=== PATIENT | male | born 1955 | race Caucasian/White ===

== ENCOUNTER 2021-02-04 18:58 | Emergency (ER) | payer OTHER, SELFPAY ==
--- NOTE | ~2021-02-04 | XR_ITS ---
EXAMINATION: XR chest 2V DATE: 02/04/2021 19:30 INDICATION: Cough. TECHNIQUE: Frontal and lateral views of the chest were obtained. COMPARISON: Chest 2 views 10/31/2018, chest CT 06/11/2014 FINDINGS: There is mild atelectasis in lingula. No pleural effusion or pneumothorax. The heart size i s normal. IMPRESSION: 1. Mild atelectasis in lingula. Reviewed, dictated and finalized at location A. CUTTER
[2021-02-04 19:09] VITALS: BP 161/73; PULSE 62; RESP 16; TEMP 37.4; O2SAT 98
--- NOTE | 2021-02-04 19:28 | ED.URI ---
HPI - URI/Sore Throat General Chief Complaint: Upper Respiratory Infection Stated Complaint: Chest Congestion Time Seen by Provider: 02/04/21 19:20 Source: patient, RN notes reviewed and old records reviewed Mode of arrival: ambulatory Limitations: no limitations History of Present Illness HPI Narrative: 65-year-old male who presents to [facility] with complaints of cough, dyspnea 1 week duration, left lower back discomfort with some wheezing and fever 102 on Tuesday.Patient has history of COPD and pneumonia and uses inhalers daily and has rescue inhaler that he states he has had to use more frequently lately. Patient reports that he quit tobacco use in 1990 but smoked heavily when he smoked up to 3ppd.Patient reports that he has had productivity of green yellow sputum with his cough and dyspnea mainly with cough and activity. SAO2 98% on room air, no tachypnea noted. Patient request refill on 2 of his inhalers which he states are low. MD elicited complaint: cough Related Data Home Medications Medication Instructions Recorded Confirmed fluticasone propion-salmeterol See Rx Instructions .ROUTE .COMPLEX 02/04/21 02/04/21 [Wixela Inhub] ipratropium bromide [Atrovent HFA] See Rx Instructions .ROUTE .COMPLEX 02/04/21 02/04/21 Allergies Allergy/AdvReac Type Severity Reaction Status Date / Time Sulfa (Sulfonamide Allergy Unknown unknown Verified 02/04/21 19:12 Antibiotics) Review of Systems Review of Systems: CONSTITUTIONAL:Positive for fevers, chills, or sweats. EYES: Denies visual changes, redness, or discharge. ENT: Positive for rhinorrhea, congestion,no sore throat, or otalgia. CARDIOVASCULAR: Denies chest pain, palpitations, or edema. RESPIRATORY: Positive for cough with some dyspnea with cough an exertion. GASTROINTESTINAL: Denies abdominal pain, nausea, vomiting, or diarrhea. GENITOURINARY: Denies dysuria or hematuria. SKIN: Denies rash or itching. MUSCULOSKELETAL:Positive for some left lower back pain,no joint pain, or myalgia. NEUROLOGIC: Denies headache, numbness, or weakness. PSYCHIATRIC: Denies anxiety or depression. All systems reviewed & are unremarkable except as noted in HPI and below PMFSH Past Medical History Medical History (Updated 02/05/21 @ 00:00 by Background Daemon) Acute bronchitis Aftercare following right shoulder joint replacement surgery Asthma Chronic lower back pain (~1999) HTN (hypertension) Psoriasis (~1974) Surgical History Surgical History (Updated 02/07/21 @ 17:02 by Susannah Petersen NP) H/O cataract removal with insertion of prosthetic lens bilateral H/O shoulder surgery Family History Family History Father Hypertension Social History Social History (Updated 02/07/21 @ 17:03 by Susannah Petersen NP) Smoking packs per day: 3 Smoking cigarettes per day: 60.0 Years smoked: 24 Smoking pack-years: 72.00 Smoking status: Former smoker Second hand tobacco smoke exposure: No Smoking end date: 03/07/90 Alcohol intake: current Substance use: never Gender identity (if verbalized by the patient): Male Comments At time of signature, agree with nursing past medical, surgical, social and family history. There is no relevant family history pertinent to the presenting complaint Exam Narrative: GENERAL: Well-appearing, well-nourished,obese and in no acute distress. HEAD: Normocephalic, atraumatic. EYES: PERRLA and EOMI. ENT: Nares clear, clear rhinorrhea no epistaxis. Mucous membranes moist.TM's normal with good light reflex, throat slight red with no lesions or exudates, no tonsil enlargement NECK: Supple.no lymphadenopathy CHEST: Decreased with coarse breath sounds bases to auscultation. No respiratory distress.Cough with some stated dyspnea, SAO2 98% on room air no tachypnea or accessory muscle use. HEART: Regular rate and rhythm. No murmur heard. Normal peripheral pulses. ABDOMEN: Soft, nontender,
== END 2021-02-04 20:10 | disposition home or self-care (01) ==
PROVIDERS: Emergency Provider Registered Nurse
DX: J06.9 Acute upper respiratory infection, unspecified (principal); J44.9 Chronic obstructive pulmonary disease, unspecified; I10 Essential (primary) hypertension; Z87.891 Personal history of nicotine dependence
CPT/HCPCS: 71046; 99213; G0463

== ENCOUNTER → 2021-02-12 01:45 | Outpatient (CLI) | payer OTHER, SELFPAY ==
[2021-02-12 19:33] LABS: SARS-CoV-2 RNA PCR Positive
== END ==
PROVIDERS: PCP Family Medicine; Visit Provider Family Medicine
DX: U07.1 COVID-19 (principal)
CPT/HCPCS: C9803; U0003; U0005

== ENCOUNTER 2022-12-17 12:33 | Emergency (ER) | payer OTHER, SELFPAY ==
[2022-12-17] VITALS (26 sets, daily range): BP systolic 140–230; BP diastolic 67–133; PULSE 66–85; RESP 15–23; TEMP 37.1; O2SAT 87–100
--- NOTE | ~2022-12-17 | XR_ITS ---
EXAMINATION: XR chest 2V DATE: 12/17/2022 14:16 INDICATION: Shortness of breath. TECHNIQUE: Frontal and lateral views of the chest were obtained. COMPARISON: Chest 2 views 02/04/2021 FINDINGS: There is no pneumonia, pleural effusion, or pneumothorax. The heart size is normal. IMPRESSION: 1. No acute cardiopulmonary disease. Reviewed, dictated and finalized at location A.
--- NOTE | 2022-12-17 12:58 | ECG_ITS ---
Measurements Intervals [place] Rate: 72 P: 85 NH: 196 QRS: -35 QRSD: 98 T: 58 QT: 388 QTc: 427 Interpretive Statements SINUS RHYTHM LEFT AXIS DEVIATION [QRS AXIS < -30] ABNORMAL ECG NO PREVIOUS ECG AVAILABLE FOR COMPARISON Electronically Signed On 12-17-2022 14:08:51 CDT by Keo Mao M.D.
[2022-12-17 13:24] LABS: Basophils Percent Auto 0.3 % (0.2-1.2); Eosinophils Absolute Auto 0.6 K/mm3 (0-0.3); Eosinophils Percent Auto 6.7 % (0-4.4); Hematocrit 46.1 % (42.0-52.0); Hemoglobin 15.8 g/dL (14.0-18.0); Immature Granulocyte Absolute 0.03 K/mm3 (0.00-0.031); Immature Granulocyte Percent A 0.3 % (0-0.5); Lymphocytes Percent Auto 10.4 % (18.3-44.2); Mean Corpuscular HGB Conc 34.3 g/dl (32-36); Mean Corpuscular Hemoglobin 30.9 pg (26-34); Mean Platelet Volume 10.4 fl (7.4-10.4); Monocytes Absolute Auto 0.9 K/mm3 (0.1-0.6); Monocytes Percent Auto 9.1 % (2.6-8.5); Neutrophils Percent Auto 73.2 % (45.5-73.1); Platelet Count Result 204 k/mm3 (150-375); Red Blood Count 5.12 M/mm3 (4.6-6.20); Red Cell Distribution Width 12.8 % (11.5-14.5); White Blood Count 9.6 K/mm3 (4.5-10.0)
[2022-12-17 13:35] LABS: Alanine Aminotransferase 20 U/L (6-50); Albumin Level 4.5 g/dL (3.5-5.1); Alkaline Phosphatase 56 U/L (38-126); Anion Gap 11 mmol/L (8-16); Aspartate Amino Transferase 37 U/L (17-59); Bilirubin,Total 1.4 mg/dL (0.2-1.3); Blood Urea Nitrogen 23 mg/dL (9-20); Calcium 9.5 mg/dL (8.4-10.2); Carbon Dioxide 28 mmol/L (22-30); Chloride 99 mmol/L (98-107); Estimated CRCL calculation 50 ml/min; Estimated Glomerular Filt Rate 40; Glucose 94 mg/dL (65-110); Potassium 3.4 mmol/L (3.4-5.0); Sodium 138 mmol/L (137-145)
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
[2022-12-17 17:37] LABS: Base Excess ABG 1.2 mEq/l (+/-2.0); Fractional Inspired Oxygen 21 %; HCO3 ABG 24.9 mEq/l (22.0-26.0); Modified Allen's Test Pass; Oxygen Content ABG 22.1 %vol (16.0-22.0); Oxygen Saturation ABG 94.6 % (95.0-100.0); Oxyhemoglobin 92.6 % THb (90.0-100.0); PCO2 ABG 37.2 mmHg (35.0-45.0); PO2 ABG 69.2 mmHg (80.0-100.0); Site Drawn RIGHT RADIAL; pH ABG 7.444 (7.350-7.450)
[2022-12-17] MEDS: ALBUTEROL SULFATE NEB 2.5 MG/3 ML INH INHALATION (17:41)
[2022-12-17] MEDS: IPRATROPIUM BR 0.02% INH SOLN 0.5 MG/2.5 ML VIAL INHALATION (17:42)
[2022-12-17] MEDS: hydrALAZINE HCL 20 MG/ML VIAL IV PUSH (18:02)
[2022-12-17] MEDS: methylPREDNISolone SOD SUCC 125 MG VIAL IV PUSH (18:02)
[2022-12-17 18:25] LABS: Prothrombin Time 13.8 Seconds (11.1-14.7)
[2022-12-17 18:26] LABS: Partial Thromboplastin Time 32.6 SECONDS (22.3-36.8)
[2022-12-17 18:27] LABS: D Dimer 0.39 ug/mL (<0.48)
[2022-12-17 18:29] LABS: NT Pro B Type Natriuretic Pept 371 pg/mL (19.9-100)
[2022-12-17 18:31] LABS: Troponin I 0.019 ng/mL (0.000-0.034)
[2022-12-17 18:43] LABS: Influenza A QL RT-PCR Negative (Negative); Influenza B QL RT-PCR Negative (Negative); SARS-CoV-2 RNA PCR Negative (Negative)
[2022-12-17] MEDS: cloNIDine HCL 0.2 MG TABLET PO (18:48)
[2022-12-17] MEDS: LOSARTAN POTASSIUM 100 MG TABLET PO (18:48)
[2022-12-17 20:52] LABS: Troponin I 0.019 ng/mL (0.000-0.034)
[2022-12-17] MEDS: levoFLOXacin 750 MG TABLET PO (21:22)
[2022-12-17] MEDS: ALBUTEROL SULFATE NEB 2.5 MG/3 ML INH 10 MG INHALATION (21:26)
== END 2022-12-17 22:50 | disposition home or self-care (01) ==
PROVIDERS: Emergency Medicine; Emergency Provider Emergency Medicine; PCP Family Medicine
DX: J44.1 Chronic obstructive pulmonary disease with (acute) exacerbation (principal); I12.9 Hypertensive chronic kidney disease with stage 1 through stage 4 chronic kidney disease, or unspecified chronic kidney disease; N18.30 Chronic kidney disease, stage 3 unspecified; T46.5X6A Underdosing of other antihypertensive drugs, initial encounter; T48.6X6A Underdosing of antiasthmatics, initial encounter; Z20.822 Contact with and (suspected) exposure to COVID-19; E55.9 Vitamin D deficiency, unspecified; Z87.891 Personal history of nicotine dependence; Z98.42 Cataract extraction status, left eye; Z98.41 Cataract extraction status, right eye; Z96.1 Presence of intraocular lens; R94.31 Abnormal electrocardiogram [ECG] [EKG]
CPT/HCPCS: 36415; 36600; 71046; 80053; 82805; 83880; 84484; 85025; 85380; 85610; 85730; 87636; 93005; 94640; 96374; 96375; 99284; A9270; J0360; J2930

== ENCOUNTER 2024-05-13 16:16 | Emergency (ER) | payer OTHER, SELFPAY ==
[2024-05-13] VITALS (10 sets, daily range): BP systolic 152–210; BP diastolic 94–97; PULSE 76–88; RESP 12–114; TEMP 36.5; O2SAT 96–100
--- NOTE | ~2024-05-13 | XR_ITS ---
EXAMINATION: XR chest 2V Exam Date/Time: 05/13/2024 16:30 CDT HISTORY: sob, cough Comparison: 12/17/2022. RESULT: Lines, tubes, and devices: None. Lungs and pleura: Clear. Cardiomediastinal silhouette: Stable. Other: No acute osseous or upper abdominal finding. IMPRESSION: No acute cardiopulmonary process. Reviewed, dictated and finalized at location K.
--- OUTSIDE RECORDS SUMMARY | 2024-05-13 16:19 | XMS_ITS | Clinical Summary ---
Author Organization [facility] Address [address] [place] [address] Phone Care Team Providers Care Molder Bench Name Role Phone Leslie Pleletier MD Primary Care Provider [phone] Allergies No known active allergies Medications LOSARTAN POTASSIUM-HCTZ PO Take by mouth. Active CLONIDINE HCL PO Take by mouth. Active MELOXICAM PO Take by mouth. Active HYDROCODONE-ACET AMINOPHEN PO Take by mouth. Active Fluticasone-Salm eterol (ADVAIR DISKUS IN) take by inhalation . Active Social History Tobacco Use Types Packs/Day Years Used Date Smoking Tobacco: Former Cigarettes Smokeless Tobacco: Never Alcohol Use Standard Drinks/Week Comments Yes 0 (1 standard drink = 0.6 oz pur e alcohol) occasionally Sex and Gender Information Value Date Recorded Sex Assigned at Not on file Legal Sex Male 9:37 PM CDT Gender Identity Not on file Sexual Orientation Not on file Plan of Treatment Health Maintenance Due Date Last Done Comments Hepatitis C Virus (HCV) Screening 1955 TdaP Immunization 1955 Colonoscopy 1998 Colorectal Cancer Screening 1998 Cologuard 08/15/2003 Immunochemical Fecal Occult Blood 08/15/2003 Pneumococcal Immunization (5 0+ years) (1 of 1 - PCV) 08/15/2003 Zoster Immunization (1 of 2) 08/15/2003 Influenza Immunization (#1) 2023 SARS-COV-2 Immunization ( - 2023-25 season) 2023 Respiratory Syncytial Virus (RSV) Immunization (Adult) (1 - 1-dose 75+ series) 2028 Hepatitis B Immunization Aged Out No longer eligible based on patient's age to complete this topic Meningococcal Immunization (ACWY) Aged Out No longer eligible based on patient's age to complete this topic Rotavirus Immunization Aged Out No lo nger eligible based on patient's age to complete this topic Insurance MEDICARE C E[employer] Care Teams Molder Bench Relationship Specialty Start Date End Date Lelsie Pelletier MD [phone] [place] [address] PCP - General Family Medicine 12/01/18
--- OUTSIDE RECORDS SUMMARY | 2024-05-13 16:19 | XMS_ITS | Continuity of Care Document ---
Author Organization [facility] Address [address] [place] [address] Phone Care Team Providers Care Aviation Technician Aircraft Name Role Phone oB Hewitt MD Unavailable Unavailable Procedures Procedure Date Special Narrative Report Rating Letter Rating Letter Medical Record Copy Medical Record Copy Per Page Office/outpatient visit,est, mod 2009 Supplemental Report Postop followup visit Supplemental Report Postop followup visit Supplemental Report Postop followup visit Supplemental Report Postop followup visit Supplemental Report Arthscpy shldr decompression Repair biceps long tendon rupture Office/outpatient visit,est, mod 2009 Supplemental Report Office/outpatient visit,est, mod 2009 Supplemental Report Office/outpatient visit,est, mod 2009 Drain/inject major jointor bursa 2009 Depo Medrol Methylprednisolone 40 MG inj Supplemental Report Office/outpatient visit,est, mod 2009 Supplemental Report Office/outpatient visit,est, mod 2009 X-ray exam of ankle, complete 0 Supplemental Report Office/outpatient visit,new, mod 2009 X-ray exam of shoulder, complete 2009 X-ray exam of foot, complete Advance Directives Directive Yes / No Effective Date File Name No Information Encounters Encounter Description Practice Location Reason(s) For Visit Diagnoses Date Provider Providers Copied on Encounter [facility], [address] [place] [address], [id number], tel:[phone] [facility] No Information 4 1 Marcelina Soriano. [address] [place] [address], [place], [place], [id number], [place]. tel:[phone] Rating Letter [facility], [address] [place] [address], [id number], [place] tel:[phone] [facility] No Information 0 1 Marcelina Soriano. [address] [place] [address], [id number], [place]. tel:[phone] Rating Letter [facility], [address] [place] [address], [place], [place], [id number], [place] tel:[phone] [facility] No Information 2 1 Marcelina Soriano. [address] [place] [address], [id number], [place]. tel:[phone] [facility], [address] [place] [address], [id number], [place] tel:[phone] [facility] No Information 3 0 Administrative Provider. [address] [place] [address], [id number], [place]. tel:[phone] Office/outpa tient visit,est, mod [facility], [address] [place] [address], [id number], [place] tel:[phone] [facility] SHOULDER REGION DIS NECROTATOR CUFF SYND NOSSPRAIN SHOULDER/ARM NECJOINT PAIN-SHLDER Dec-2 0-201 0 Marcelina Soriano. [address] [place] [address], [id number], [place]. tel:[phone] Referring Provider: Elo Steen, [address] [facility] [address] [facility], [place], [address] . tel:[phone] [facility], [address] [facility] [address], [place], [place], [address] [place] [address], tel:[phone] [facility] No Information 2 0 Marcelina Soriano. [address] [facility], [place], [place], [address] [place] [address], [place]. tel:[phone] Referring Provider: Elo Steen, [facility] [address] [facility], [place], [place], [address] [place] [address] . tel:[phone] [facility], [facility] [place] [address], [place], [place], [address] [place] [address], tel:[phone] [facility] No Information 0 0 Marcelina Soriano. [address] [facility], [facility] [address], [place], [place], [address] [place] [address], [place]. tel:[phone] Referring Provider: Elo Steen, [facility] [address] [facility], [place], [place], [address] [place] [address] . tel:[phone] [facility], [address] [place] [address], [place], [place], [address] [place] [address], tel:[phone] [facility] No Information 0 0 Marcelina Soriano. [address] [facility], [place], [place], [address] [place] [address], [place]. tel:[phone] Referring Provider: Elo Steen, [address] [facility] [address] [facility], [place], [address] . tel:[phone] [facility], [address] [facility] [address], [place], [place], [address] [place] [address], tel:[phone] [facility] No Information 0 Marcelina Soriano. [address] [facility], [place], [place], [id number], [place]. tel:[phone] Referring Provider: Elo Steen, [address] [address], [place], [address] . tel:[phone] [facility], [address] [address], [place], [place], [id number], [place] tel:[phone] [place] [address] No Information 0 Marcelina Soriano. [address] [address], [place], [place], [id number], [place]. tel:[phone] Office/outpa tient visit,est, [facility], [address] [place] [address], [place], [place], [address] [place] [address], tel:[phone] [facility] No Information 0 Marcelina Soriano. [address] [place] [address], [place], [place], [address] [place] [address], [place]. tel:[phone] Referring Provider: Elo Steen, [address] [address], [place], [address] . tel:[phone] Office/outpa tient visit,est, [facility], [address] [place] [address], [place], [place], [id number], [place] tel:[phone] [facility] No Information 0 Marcelina Soriano. [address] [address], [place], [place], [id number], [place]. tel:[phone] Referring Provider: Elo Steen, [address] [address], [place], [address] . tel:[phone] Office/outpa tient visit,est, [facility], [address] [place] [address], [id number], [place] tel:[phone] [facility] No Information 0 Marcelina Soriano. [address] [facility], [place] [address], [place], [place], [id number], [place]. tel:[phone] Referring Provider: Elo Steen, [address] [address], [place], [address] . tel:[phone] Office/outpa tient visit,[facility], [facility], [address], [id number], tel:[phone] [facility] No Information July-2 0-201 0 Harry Gasca. [address] [address], [place], [place], [id number], [place]. tel:[phone] Office/outpa tient visit,[facility], [facility], [address], [id number], [place] tel:[phone] [facility] No Information July- 0-201 0 Harry Gasca. [address] [address], [place], [place], [id number], [place]. tel:[phone] Office/outpa tient visit,[facility], [address], [id number], [place] tel:[phone] [facility] No Information Jun-2 1- 0 Harry Gasca. [address], [id number], [place]. tel:[phone] Family History Family Member Type Diagnosis Age At Onset No Information Payers Payer name Insurance type Covered republican ID Mc casanova(s) Rafa [id number] Social History Type Description Quantity Date Captured Comments Sex Male Smoking Status No Information Chief Complaint And Reason For Visit No Information Reason For Referral Reason For Referral No Information History Of Present Illness Encounter Date Complaint History Of Prese nt Illness No Information Functional Status Date Functional Assessmen t No Information Instructions Date Instruction Additional Infor mation No Information Assessments Type Assessment Date No Information Patient Care Teams Name Effective Dates (start - stop) Status Members No Information
--- OUTSIDE RECORDS SUMMARY | 2024-05-13 16:19 | XMS_ITS | Continuity of Care Document ---
Author Organization [employer] [facility] Address [address] [place] [address] Phone Care Team Providers Care Managing Attorney Name Role Phone Jimmy CONNER, Irina Unavailable Unavailable Allergies, Adverse Reactions, Alerts Substance Reaction Status Criticality Sulfa (Sulfonamide Antibiotics) Active No Information Medications Medication Instructions Dosage Effective Dates (start - stop) Status Comments losartan 100 mg-hydrochlorothia zide 25 mg tablet take 1 tablet by oral route every day 1.00 tablet - Active clonidine HCl 0.2 mg tablet take 1 tablet by oral route 2 times every day 0.2 MG - Active Wixela Inhub 500 mcg-50 mcg/dose powder for inhalation inhale 1 puff by inhalation route 2 times every day in the morning and evening approximately 12 hours apart 1.00 puff - Active Trelegy Ellipta 200 mcg-62.5 mcg-25 mcg powder for inhalation inhale 1 puff by inhalation route every day at the same time each day 1.00 puff - Active Atrovent HFA 17 mcg/actuation aerosol inhaler inhale 2 puff by inhalation route 4 times every day 34 MCG - Active indomethacin 50 mg capsule take 1 capsule by oral route 2 times every day with food 50 MG - Active albuterol sulfate HFA 90 mcg/actuation aerosol inhaler inhale 2 puff by inhalation route every 4 - 6 hours as needed 180 MCG - Active neomycin-polymyxin -dexameth 3.5 mg/mL-10,000 unit/mL-0.1% eye drops instill 1 drop by ophthalmic route every 3 - 4 hours into left eye(s) - No Longer Active Procedures Procedure Date SCODI, Retina Eye Exam & Treatment Fundus Photography W/ Report Office/outpatient Visit, Est Fundus Photography W/ Report Eye Exam, New Patient Post-op Follow-up Visit Post-op Follow-up Visit Remove Cataract, Insert Lens Eye Exam, New Patient [employer] Advance Directives Directive Yes / No Effective Date File Name Other Directive No N/A N/A WARNING:The information contained in this section is historical and is provided for information only and does not constitute a legal document or any assurance that the information is still accurate. Please verify the information with the patricio of the legal document before using it for clinical purposes. Encounters Encounter Description Practice Location Reason(s) For Visit Diagnoses Date Provider Providers Copied on Encounter [facility], [address] [place] [address] [address], [place], [place], [id number], tel:[phone] SEC [place] Professional Red/Painfu l (chief complaint) Acute viral conjunctivitis of left eyePuckering of macula, left eyeVitreous degeneration, left eyePresence of intraocular lensOther secondary cataract, bilateral May- 5 Jimmy OD Irina. [address] [place] [address], [address], [place], [place], [id number], . tel:[phone] Referring Provider: Odilon Myrick, [address] [facility] [place], [place], [address] . tel:[phone] Office/outpa tient Visit, Est [facility], [address], [place], [place], [address], [place] tel:[phone] SEC [place] Professional Follow up visit (chief complaint) Vitreous degeneration, left eye 3 Terrell Donald. [address] [facility], [facility] [place], [place], [address], [place]. tel:[phone] Referring Provider: Odilon Myrick [address] [facility] [address], [place], [address] . tel:[phone] [facility], [address], [place], [place], [address], [place] tel:[phone] [facility] Professional Complete Exam (chief complaint) Vitreous degeneration, left eyePresence of intraocular lensRetinal hemorrhage, left eye 3 Terrell Donald. [address] [facility], [place], [place], [address], [place]. tel:[phone] Referring Provider: Odilon Myrick, [address] [facility] [address], [place], [address] . tel:[phone] [facility], [address], [place], [place], [address], [place] tel:[phone] [facility] No Information 8-200 8 Doisy Edyulissa. [address], [place], [place], [facility], [place]. tel:[phone] [facility], [address], [place], [place], [address], [place] tel:[phone] [facility] No Information 2 6-200 8 Doiila Edyulissa. [address] , [address], [place], [address], [place]. tel:[phone] [facility], [address], [place], [place], [address], [place] tel:[phone] [facility] No Information Nov2 5-200 8 Doisy Edyulissa. [address] , [address], [place], [place], [facility], [place]. tel:[phone] [facility], [address], [place], [place], [address], [place] tel:[phone] [facility] No Information 8 Julissa García. [address] , [address], [place], [address], [place]. tel:[phone] Referring Provider: Henok [address], [place], [address]. tel:[phone] Family History Family Member Type Diagnosis Age At Onset No Information Payers Payer name Insurance type Covered constitution party ID Mc casanova(s) [employer] [id number] Social History Type Description Quantity Date Captured Comments Alcohol Use Details Caffeine Use Details Tobacco Use Status Ex-cigarette smoker 025 Smoking Status Former smoker Smoking Tobacco Use Details Cigarette: Age Started: 16, Age Stopped: 35, Years Used 19 Cigarette: No Details Available Sex Male Chief Complaint And Reason For Visit From encounter dated '05/09/2024 10:15'. Red/Painful (chief complaint). Description: The 68 year old patient presents for evaluation of Red/Painful in the left eye. Pt states that starting about a week ago they noticed that OS started to become painful and red. Pt states it feels like something is in OS and pt states when they close OS itfeels much better. Pt states that OS mats up during the night and is hard to open in OU. Pt states t hat they had a cold around the same time this started and pt states that the cold seem to make OS worse. Pt states that since then OS seems a little better but still feels like something is in OS. Pthas been taking Polytrim every 4-6 hours in OS. Reason For Referral Reason For Referral No Information Plan Of Treatment Date Type Action Status Goal Tobacco cessation counseling completed Patient Education Blair Restrepo Instructcordelia ons completed Patient Education Learning About Vitreous Detachment completed History Of Present Illness Encounter Date Complaint History Of Prese nt Illness Red/Painful The 68 year old patient presents for evaluation of Red/Painful in the left eye. Pt states that starting about a week ago they noticed that OS started to become painful and red. Pt states it feels like something is in OS and pt states when they close OS it feels much better. Pt states that OS mats up during the night and is hard to open in OU. Pt states that they had a cold around the same time this started and pt states that the cold seem to make OS worse. Pt states that since then OS seems a little better but still feels like something is in OS. Pt has been taking Polytrim every 4-6 hours in OS. Follow up visit The 66 year old patient presents for a 1 month PVD OS follow up. Patient states he has not seen the flashing light in about 4 days. Patient states he still has the floater OS. Complete Exam The 66 year old patient presents for a complete exam ou. Patient states at night he sometimes sees a white flashing light temporally OS with a black floater x 3 weeks. Patient wears OTC reading glasses. Patient states vision ou seems pretty good. Functional Status Date Functional Assessmen t No Information Instructions Date Instruction Additional Infor rajni Impression/Plan Impression/Plan Impression/Plan Assessments Type Assessment Date assessment Acute viral conjunctivitis of le ft eye assessment Puckering of macula, left eye Ma assessment Vitreous degeneration, left eye assessment Presence of intraocular lens May assessment Other secondary cataract, bilate ral Patient Care Teams Name Effective Dates (start - stop) Status Members No Information
--- OUTSIDE RECORDS SUMMARY | 2024-05-13 16:19 | XMS_ITS | Patient Health Summary ---
Author Organization [facility] [employer] Address [address] [place] [address] Care Team Providers Care Nutritional Services Cook Name Role Phone Unavailable Primary Care Provider Unavailabl e Note from [facility],non-owned Affiliates and Associated Physician Practices is amultiple site organization consisting of ambulatory clinics and hospital sitesin [place], [place], [place] and [place]. This disclosure is being madepursuant to the Care Everywhere program and may not contain all information available regarding this patient. Last updated 17.[facility] [employer] Allergies * Sulfa Drugs Medications * Be aware that medications may not be up to date on this document. Alwaysverify current medications with the patient. * CloNIDine HCl (CATAPRES PO) * VALSARTAN PO Social History Tobacco Use Types Packs/Day Years Used Date Smoking Tobacco: Former Smokeless Tobacco: Never Sex and Gender Information Value Date Recorded Sex Assigned at Not on file Gender Identity Not on file Sexual Orientation Not on file Last Filed Vital Signs Vital Sign Reading Time Taken Comments Blood Pressure 140/84 03/18/2017 3:28 PM [employer]TER [employer] Pulse 75 03/18/2017 3:28 PM [employer] Temperature 37.6 C (99.6 F) 03/18/2017 3:28 PM [employer] Respiratory Rate - - Oxygen Saturation 97% 03/18/2017 3:28 PM [employer] [place] Inhaled Oxygen Concentration - - Weight 133.8 kg (295 lb) 03/18/2017 3:28 PM [employer] Height 175.3 cm (5' 9 ) 03/18/2017 3:28 PM [employer] [place] Body Mass Index 43.56 03/18/2017 3:28 PM HEAD [employer]TER [employer]AGG[employer]
--- OUTSIDE RECORDS SUMMARY | 2024-05-13 16:19 | XMS_ITS | Referral Summary ---
Author Organization [facility] [employer] Address [address] [place] [address] Care Team Providers Care Pin Sorter And Bagger Name Role Phone Unavailable Primary Care Provider Unavailabl e Source Comments [facility],non-owned Affiliates and Associated Physician Practices is amultiple site organization consisting of ambulatory clinics and hospital sitesin [place], [place], [place] and [place]. This disclosure is being madepursuant to the Care Everywhere program and may not contain all information available regarding this patient. Last updated 17.[facility] [employer] Allergies Active Allergy Reactions Criticality Noted Date Comments Sulfa Drugs 03/18/2017 Medications * Be aware that medications may not be up to date on this document. Alwaysverify current medications with the patient. Medication Sig Dispensed Refills Start Date End Date Status CloNIDine HCl (CATAPRES PO) Active VALSARTAN PO Active Social History Tobacco Use Types Packs/Day Years Used Date Smoking Tobacco: Former Smokeless Tobacco: Never Sex and Gender Information Value Date Recorded Sex Assigned at Not on file Gender Identity Not on file Sexual Orientation Not on file Last Filed Vital Signs Vital Sign Reading Time Taken Comments Blood Pressure 140/84 03/18/2017 3:28 PM GALVANIZER Pulse 75 03/18/2017 3:28 PM GALVANIZER Temperature 37.6 C (99.6 F) 03/18/2017 3:28 PM GALVANIZER Respiratory Rate - - Oxygen Saturation 97% 03/18/2017 3:28 PM GALVANIZER Inhaled Oxygen Concentration - - Weight 133.8 kg (295 lb) 03/18/2017 3:28 PM GALVANIZER Height 175.3 cm (5' 9 ) 03/18/2017 3:28 PM GALVANIZER Body Mass Index 43.56 03/18/2017 3:28 PM GALVANIZER Plan of Treatment Not on file
--- OUTSIDE RECORDS SUMMARY | 2024-05-13 16:19 | XMS_ITS | Clinical Summary ---
Author Organization [facility] [employer] Address [address] [place] [address] Care Team Providers Care Car Whacker Name Role Phone Unavailable Primary Care Provider Unavailabl e Source Comments [facility] [employer],non-owned Affiliates and Associated Physician Practices is amultiple site organization consisting of ambulatory clinics and hospital sitesin [place], [place], [place] and [place]. This disclosure is being madepursuant to the Care Everywhere program and may not contain all information available regarding this patient. Last updated 17.[facility] [employer] Allergies Active Allergy Reactions Criticality Noted Date [...] Comments Blood Pressure 140/84 03/18/2017 3:28 PM [employer] [place] Pulse 75 03/18/2017 3:28 PM [employer] [place] Temperature 37.6 C (99.6 F) 03/18/2017 3:28 PM [employer] [place] Respiratory Rate - - Oxygen Saturation 97% 03/18/2017 3:28 PM [employer] [place] Inhaled Oxygen Concentration - - Weight 133.8 kg (295 lb) 03/18/2017 3:28 PM [employer] [place] Height 175.3 cm (5' 9 ) 03/18/2017 3:28 PM [employer] [place] Body Mass Index 43.56 03/18/2017 3:28 PM [employer] [place] Plan of Treatment Health Maintenance Due Date Last Done Comments COLOGUARD (AGES 45-75) - COL ON CA SCREENING 1953 COLON MONITORING 1953 COLONOSCOPY - COLON CA SCREENING 1953 CT COLONOGRAPHY - COLON CA SCREENING 1953 Colorectal Cancer Screening 1953 FIT - COLON CA SCREENING 1953 FLEX SIG - COLON CA SCREENING 1953 LIPID TESTING 1953 HEPATITIS C SCREENING 08/10/1971 DTAP/TDAP/TD VACCINES (1 - Tdap) 1972 PNEUMOCOCCAL VACCINE 50+ (1 of 1 - PCV) 08/15/2003 ZOSTER VACCINE (1 of 2) 08/15/2003 Respiratory Syncytial Virus (RSV) Vaccine Pt: or over 60 yrs (1 - Risk 60-74 years 1-dose series) 2013 SCREENING FOR DIABETES 03/18/2017 AAA SCREENING 2018 COVID-19 VACCINE (2023-2 5 season) 2023 INFLUENZA VACCINE (#1) 2023 DEPRESSION SCREENING 03/07/2024 HEPATITIS B VACCINE Aged Out No longe r eligible based on patient's age to complete this topic HIB VACCINE Aged Out No longer eligi ble based on patient's age to complete this topic HPV VACCINE Aged Out No longer eligi ble based on patient's age to complete this topic MENINGOCOCCAL (Group B) VACCINE Aged Out No longer eligible based on patient's age to complete this topic MENINGOCOCCAL VACCINE Aged Out No susan ashutosh eligible based on patient's age to complete this topic
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
--- NOTE | 2024-05-13 16:29 | ECG_ITS ---
Test Date: 2024-05-13 16:28:18 Measurements Intervals [place] Rate: 83 P: 0 WA: 0 QRS: -36 QRSD: 96 T: 62 QT: 359 QTc: 423 Interpretive Statements ATRIAL FIBRILLATION MARKED LEFT AXIS DEVIATION [QRS AXIS < -30] ANTEROSEPTAL MYOCARDIAL INFARCTION , PROBABLY OLD [40+ ms Q WAVE IN V1-V4] No previous ECG available for comparison Electronically Signed On 05-14-2024 11:19:14 CDT by Bry Kong M.D.
--- OUTSIDE RECORDS SUMMARY | 2024-05-13 16:37 | XMS_ITS | Continuity of Care Document ---
Author Organization [facility] Address [address] [facility] [address] [place] [address] Phone Care Team Providers Care Civil Engineer'S Aide Name Role Phone Jimmy CONNER, Irina Unavailable [...] Diagnoses Date Provider Providers Copied on Encounter [facility], [address] [place] [address] [address], [place], [place], [id number], tel:[phone] [facility] [place] [facility] Professional Red/Painfu l (chief complaint) Acute viral conjunctivitis of left eyePuckering of macula, left eyeVitreous degeneration, left eyePresence of intraocular lensOther secondary cataract, bilateral May- 5 Jimmy OD Irina. [address] [place] [address], [address], [place], [place], [id number], . tel:[phone] Referring Provider: Odilon Myrick, [address] [facility] [address], [place], [address] . tel:[phone] Office/outpa tient Visit, Est [facility], [address], [place], [place], [id number], [place] tel:[phone] [facility] [place] Professional Follow up visit (chief complaint) Vitreous degeneration, left eye 3 Terrell Donald. [address] [facility], [facility] [place], [id number], [place]. tel:[phone] Referring Provider: Odilon Myrick [address] [facility] [address], [place], [address] . tel:[phone] [facility], [address], [place], [place], [id number], [place] tel:[phone] [facility] Professional Complete Exam (chief complaint) Vitreous degeneration, left eyePresence of intraocular lensRetinal hemorrhage, left eye 3 Terrell Donald. [address] [facility], [address], [place], [place], [id number], [place]. tel:[phone] Referring Provider: Odilon Myrick, [address] [facility] [address], [place], [address] . tel:[phone] [facility], [address], [place], [place], [id number], [place] tel:[phone] [facility] No Information 8-200 8 Doisy Edyulissa. [address], [place], [place], [facility], [place]. tel:[phone] [facility], [address], [place], [place], [id number], [place] tel:[phone] [facility] No Information 2 6-200 8 Doiila Edyulissa. [address] , [address], [place], [address], [place]. tel:[phone] [facility], [address], [place], [place], [address], [place] tel:[phone] [facility] No Information Nov2 5-200 8 Doisy Edyulissa. [address], [place], [place], [facility], [place]. tel:[phone] [facility], [address], [place], [place], [id number], [place] tel:[phone] [facility] No Information 8 Julissa García. [address] , [address], [place], [address], [place]. tel:[phone] Referring Provider: Henok [address], [place], [address]. tel:[phone] Family History Family Member Type Diagnosis Age At Onset No Information Payers Payer name Insurance type Covered libertarian ID Mc casanova(s) [employer] [id number] Social History Type Description Quantity Date Captured [...]
--- OUTSIDE RECORDS SUMMARY | 2024-05-13 16:37 | XMS_ITS | Continuity of Care Document ---
Author Organization [facility] Address [address] [place] [address] Phone Care Team Providers Care Urology Physician Assistant Name Role Phone Bo Hewitt MD Unavailable Unavailable Procedures Procedure Date [...] Date Provider Providers Copied on Encounter [facility], [address] [place] [address], [id number], tel:[phone] [facility] No Information 4 1 Marcelina Soriano. [address] [place] [address], [place], [place], [id number], [place]. tel:[phone] Rating Letter [facility], [address] [place] [address], [id number], [place] tel:[phone] [facility] No Information 0 1 Marcelina Soriano. [address] [place] [address], [id number], [place]. tel:[phone] Rating Letter [facility], [address] [place] [address], [place], [place], [id number], [place] tel:[phone] [facility] No Information 2 1 Marcelina Soriano. [address] [place] [address], [id number], [place]. tel:[phone] [facility], [address] [place] [address], [id number], [place] tel:[phone] [facility] No Information 3 0 Administrative Provider. [address] [place] [address], [id number], [place]. tel:[phone] Office/outpa tient visit,est, mod [facility], [address] [place] [address], [id number], [place] tel:[phone] [facility] SHOULDER REGION DIS NECROTATOR CUFF SYND NOSSPRAIN SHOULDER/ARM NECJOINT PAIN-SHLDER Dec-2 0-201 0 Marcelina Soriano. [address] [place] [address], [id number], [place]. tel:[phone] Referring Provider: Elo Steen, [address] [facility] [address] [facility], [place], [address] . tel:[phone] [facility], [address] [facility] [address], [place], [address] [place] [address], tel:[phone] [facility] No Information 2 0 Marcelina Soriano. [address] [facility], [place], [address] [place] [address], [place]. tel:[phone] Referring Provider: Elo Steen, [facility] Suite [facility], [place], [address] [place] [address] . tel:[phone] [facility], [facility] [address], [place], [address] [place] [address], tel:[phone] [facility] No Information 0 0 Marcelina Soriano. [address] [facility], [facility] [address], [place], [address] [place] [address], [place]. tel:[phone] Referring Provider: Elo Steen, [facility]0 [facility] Suite [facility], [place], [address] [place] [address] . tel:[phone] [facility], [address] [place] [address], [place], [address] [place] [address], tel:[phone] [facility] No Information 0 0 Marcelina Soriano. [address] [facility], [place], [address] [place] [address], [place]. tel:[phone] Referring Provider: Elo Steen, [address] [facility] Suite [facility], [place], [address] . tel:[phone] [facility], [address], [place], [address] [place] [address], tel:[phone] [facility] No Information 0 Marcelina Soriano. [address] [facility], [address], [place], [place], [id number], [place]. tel:[phone] Referring Provider: Elo Steen, [address] [address], [place], [address] . tel:[phone] [facility], [address] [address], [place], [place], [id number], [place] tel:[phone] [place] [address] No Information 0 Marcelina Soriano. [address] [address], [place], [place], [id number], [place]. tel:[phone] Office/outpa tient visit,est, [facility], [address] [place] [address], [place], [address] [place] [address], tel:[phone] [facility] No Information 0 Marcelina Soriano. [address] [place] [address], [place], [address] [place] [address], [place]. tel:[phone] Referring Provider: Elo Steen, [address] [address], [place], [address] . tel:[phone] Office/outpa tient visit,est, [facility], [address] [place] [address], [place], [place], [id number], [place] tel:[phone] [facility] No Information 0 Marcelina Soriano. [address] [address], [place], [place], [id number], [place]. tel:[phone] Referring Provider: Elo Steen, [address] [address], [place], [address] . tel:[phone] Office/outpa tient visit,est, [facility], [address] [place] [address], [id number], [place] tel:[phone] [facility] No Information 0 Marcelina Soriano. [address] [facility], [address] [address], [place], [place], [id number], [place]. tel:[phone] Referring Provider: Elo Steen, [address] [address], [place], [address] . tel:[phone] Office/outpa tient visit,[facility], [facility], [address], [id number], tel:[phone] [facility] No Information July-2 0-201 0 [place] Gasca. [address] [address], [place], [place], [id number], [place]. tel:[phone] Office/outpa tient visit,[facility], [facility], [address], [id number], [place] tel:[phone] [facility] No Information July- 0-201 0 [place] Gasca. [address] [address], [place], [place], [id number], [place]. tel:[phone] Office/outpa tient visit,[facility], [address], [id number], [place] tel:[phone] [facility] No Information Jun-2 1- 0 [place] Gasca. [address], [id number], [place]. tel:[phone] Family History Family Member Type Diagnosis Age At Onset No Information Payers Payer name Insurance type Covered green party ID Mc casanova(s) Rafa [id number] Social History Type Description Quantity Date Captured [...]
[2024-05-13 16:49] LABS: Alveolar/Arterial O2 Gradient 14.2 mmHg; Base Excess ABG 2.8 mEq/l (+/-2.0); Fractional Inspired Oxygen 21 %; HCO3 ABG 27.1 mEq/l (22.0-26.0); Oxygen Content ABG 24.8 %vol (16.0-22.0); Oxygen Saturation ABG 96.9 % (95.0-100.0); Oxyhemoglobin 96.5 % THb (90.0-100.0); PCO2 ABG 40.5 mmHg (35.0-45.0); PO2 FiO2 Ratio Arterial Blood 4.14 %; Total Hemoglobin 18.3 g/dL (12.0-18.0); pH ABG 7.444 (7.350-7.450)
[2024-05-13 16:50] LABS: Basophils Percent Auto 0.4 % (0.2-1.2); Device ROOM AIR; Eosinophils Absolute Auto 0.2 K/mm3 (0-0.3); Eosinophils Percent Auto 1.7 % (0-4.4); Hematocrit 50.6 % (42.0-52.0); Hemoglobin 17.5 g/dL (14.0-18.0); Immature Granulocyte Absolute 0.08 K/mm3 (0.00-0.031); Immature Granulocyte Percent A 0.8 % (0-0.5); Lymphocytes Absolute Auto 2.13 K/mm3 (0.9-3.2); Lymphocytes Percent Auto 21.8 % (18.3-44.2); Mean Corpuscular HGB Conc 34.6 g/dl (32-36); Mean Corpuscular Hemoglobin 30.6 pg (26-34); Mean Corpuscular Volume 88.5 fl (80-100); Mean Platelet Volume 10.5 fl (7.4-10.4); Modified Allen's Test Pass; Monocytes Absolute Auto 1.1 K/mm3 (0.1-0.6); Neutrophils Absolute Auto 6.3 K/mm3 (1.3-6.7); Neutrophils Percent Auto 64.3 % (45.5-73.1); Platelet Count Result 287 k/mm3 (150-375); Red Blood Count 5.72 M/mm3 (4.6-6.20); Red Cell Distribution Width 13.4 % (11.5-14.5); Site Drawn LEFT RADIAL; White Blood Count 9.8 K/mm3 (4.5-10.0)
[2024-05-13 17:01] LABS: Alanine Aminotransferase 57 U/L (6-50); Albumin Level 4.2 g/dL (3.5-5.1); Alkaline Phosphatase 57 U/L (38-126); Anion Gap 11 mmol/L (4-12); Aspartate Amino Transferase 31 U/L (17-59); Bilirubin,Total 0.8 mg/dL (0.2-1.3); Blood Urea Nitrogen 39 mg/dL (9-20); Calcium 9.7 mg/dL (8.4-10.2); Carbon Dioxide 25 mmol/L (22-30); Chloride 99 mmol/L (98-107); Estimated CRCL calculation 48 ml/min; Estimated Glomerular Filt Rate 38; Glucose 92 mg/dL (65-110); Potassium 4.1 mmol/L (3.4-5.0); Sodium 135 mmol/L (137-145)
[2024-05-13 17:22] LABS: NT Pro B Type Natriuretic Pept 890 pg/mL (19.9-100); Troponin I 0.014 ng/mL (0.000-0.034)
[2024-05-13 17:40] LABS: Influenza A QL RT-PCR Negative (Negative); Influenza B QL RT-PCR Negative (Negative); RSV RNA, RT-PCR Negative (Negative); SARS-CoV-2 RNA PCR Negative (Negative)
[2024-05-13 18:16] LABS: Add Urine Microscopic? YES; Appearance Urine Cloudy (Clear); Bacteria Urine None Seen /hpf; Bilirubin Urine Negative (Negative); Blood Urine 3+ (Negative); Color Urine Yellow (Yellow); Glucose Urine UA Negative (Negative); Ketones Urine Negative (Negative); Leukocyte Esterase Ur Negative LEU/UL (Negative); Need Manual Microscopic Reviewed; Nitrate Urine Negative (Negative); Protein Urine 3+ mg/dL (Negative); RBC Urine >100 /hpf (0-2); Specific Grav Ur 1.017 (1.001-1.035); Squamous Epithelial Cell Urine None Seen /hpf (Few); Urobilinogen Urine 0.2 mg/dL (<2.0); WBC Urine >100 /hpf (0-3)
== END 2024-05-13 18:43 | disposition home or self-care (01) ==
PROVIDERS: Emergency Provider Emergency Medicine; PCP Family Medicine
DX: N39.0 Urinary tract infection, site not specified (principal); Z20.822 Contact with and (suspected) exposure to COVID-19; I12.9 Hypertensive chronic kidney disease with stage 1 through stage 4 chronic kidney disease, or unspecified chronic kidney disease; N18.30 Chronic kidney disease, stage 3 unspecified; E55.9 Vitamin D deficiency, unspecified; J45.909 Unspecified asthma, uncomplicated; L40.9 Psoriasis, unspecified; M10.9 Gout, unspecified; Z96.1 Presence of intraocular lens; Z98.42 Cataract extraction status, left eye; Z98.41 Cataract extraction status, right eye; Z79.899 Other long term (current) drug therapy
CPT/HCPCS: 36415; 36600; 71046; 80053; 81001; 82805; 83880; 84484; 85018; 85025; 87086; 87637; 93005; 96365; 99284; J0696

== ENCOUNTER 2025-01-21 13:41 | Outpatient (CLI) | payer OTHER, SELFPAY ==
--- NOTE | 2025-01-21 15:15 | WPDSIXMINUTE ---
Six Minute Walk Procedure Procedure Performed Pulmonary Stress Test (6 min walk) Six Minute Walk Six Minute Walk: This is a 6 minute walk test. The test was performed and interpreted in accordance with the 2014 ERS/ATS task force guidelines. Findings: The patient's resting room air oxygen saturation measured by pulse oximetry was 96%, the heart rate was 86 bpm, and the modified Fransisco dyspnea score was 1. Patient ambulated for 168 meters and oxygen saturation remained 94 to 95%. At the end of the study the heart rate was 92 bpm and the modified Fransisco dyspnea score was 3-4. The patient did not qualify for supplemental oxygen at rest or with ambulation. There are no prior studies for comparison.
--- NOTE | 2025-01-21 15:16 | WPDPFTINT ---
PFT Procedure Performed PFT Procedure Performed Spirometry with Pre/Post Bronchodilator Plethysmography (Lung Vol) Diffusing Cap (DLCO) Flow Vol Loop PFT Interpretation This is a pulmonary function test with pre and post-bronchodilator spirometry, plethysmography and diffusing capacity. The test was performed and results interpreted in accordance with the 2019 and 2005 ATS/ERS Task Force guidelines respectively using the Global Lung Function Initiative-2012 reference equations. Patient demonstrated good effort and cooperation. Reproducibility criteria were met. The quality of the pre bronchodilator spirometry maneuver was Grade A and post bronchodilator spirometry maneuver was Grade A. Findings: Spirometry: There is decreased maximal expiratory airflow at all lung volumes with a concave expiratory flow tracing. The contour the inspiratory flow tracing is normal. The pre bronchodilator FVC is 1.68 L, 41% predicted. The pre bronchodilator FEV1 is 1.04 L, 34% predicted. The pre bronchodilator FEV1: FVC ratio 62%. The post bronchodilator FVC is 1.66 L, representing a 1% decrease. The post bronchodilator FEV1 is 1.07 L, representing a 3% increase. The post bronchodilator FEV1: FVC ratio is 64%. Plethysmography: The total lung capacity is 4.38 L, 64% predicted. The functional residual capacity is 2.94 L, 82% predicted. The residual volume is 2.51 L, 104% predicted. The residual volume: Total lung capacity ratio is 57%. Diffusing capacity: The diffusing capacity unadjusted for hemoglobin and carboxyhemoglobin is 16.4, 64% predicted. The diffusing capacity adjusted for alveolar volume is 3.55, 135% predicted. Impression: There is a combined obstructive and restrictive ventilatory abnormality. There are no guidelines to assign the severity of obstruction and restriction with a combined abnormality. In my opinion, given the moderately concave expiratory flow tracing, decreased FEV1: FVC ratio and mild restrictive abnormality, I would state there is a severe obstructive abnormality and a mild restrictive abnormality resulting in a very severe decrease in the FEV1. There is no significant improvement after inhaling a single dose of albuterol. The diffusing capacity unadjusted for hemoglobin and carboxyhemoglobin is mildly decreased and is increased when adjusted for alveolar volume. There are no prior studies for comparison
== END 2025-01-21 13:42 | disposition home or self-care (01) ==
PROVIDERS: Visit Provider Nurse Practitioner Family
DX: R06.09 Other forms of dyspnea (principal); J44.9 Chronic obstructive pulmonary disease, unspecified; J98.4 Other disorders of lung
CPT/HCPCS: 94060; 94618; 94726; 94729